=== PATIENT | male | born 1970 | race African-American/Black ===

== ENCOUNTER 2019-03-28 10:18 | Inpatient (IN) ==
[2019-03-28] MEDS ORDERED: hydrALAZINE 20 MG/1 ML VIAL IV PRN (12:13)
[2019-03-28] MEDS ORDERED: LEVOFLOXACIN INJ 750 MG in PREMIX 1 EACH IV SCH (12:30)
[2019-03-28 12:36] LABS: Basophils % 0.8 % (0.0-0.8); Eosinophils # 0.1 10*3/uL (0.0-0.87); Eosinophils % 1.9 % (0.00-10.9); Hematocrit 47.7 VOL% (42.0-52.0); Immature Granulocytes % 0.3 %; Immature Granulocytes Absolute 0.01 #; Lymphocytes % 25.9 % (21.2-54.2); Mean Corpuscular HGB Conc 33.5 GM/DL (32-36); Mean Corpuscular Volume 85.6 FL (87-102); Mean Platelet Volume 9.9 FL (9.6-12.0); Monocytes % 13.7 % (1.7-12.7); Neutrophils % 57.4 % (38.7-73.9); Platelet Count 302 T/CUMM (130-400); Red Blood Count 5.57 MC/CUMM (3.8-5.5); Red Cell Distribution Width 13.9 % (9.3-17.3); White Blood Count 3.7 T/CUMM (4-12)
[2019-03-28 13:00] LABS: Albumin 3.8 G/DL (3.4-5.0); Bilirubin,Total 0.7 MG/DL (0.2-1.0); Calcium 9.3 MG/DL (8.5-10.1); Osmolality,Calculated 276.5 MOS/KG (273-304); Total Protein 7.8 G/DL (6.4-8.3)
[2019-03-28] MEDS: ALBUTEROL/IPRATROPIUM 3 ML NEB RESP TX SCH ×2 (14:46→21:37)
[2019-03-28 14:50] LABS: Apearance,Urine CLEAR (Clear); Bilirubin,Urine Negative (Negative); Blood, Urine Negative (Negative); Glucose,Urine (UA) Negative (Negative); Ketones,Urine Negative (Negative); Mucus,Urine Occasional /LPF (Occasional); Nitrite,Urine Negative (Negative); Protein,Urine Negative; RBC,Urine 1 /HPF (0-4); Urine Color Yellow (Yellow); Urine Specific Gravity 1.011 (1.001-1.035); Urine Urobilinogen < 2.0 EU/DL (0.2-1.0); WBC,Urine <1 /HPF (0-6)
[2019-03-28 15:14] LABS: Barbiturates Screen,Urine Negative (Negative); Benzodiazepines Screen,Urine Negative (Negative); Cannabinoid Screen,Urine Positive (Negative); Opiate Screen,Urine Negative (Negative); Phencyclidine Screen,Urine Negative (Negative)
[2019-03-28] MEDS ORDERED: ACETAMINOPHEN 325 MG TABLET PO PRN (18:19)
[2019-03-28] MEDS: LOSARTAN 25 MG TABLET PO SCH (21:54)
[2019-03-28] MEDS: carvediloL 6.25 MG TABLET PO SCH (21:54)
[2019-03-29] MEDS: ALBUTEROL/IPRATROPIUM 3 ML NEB RESP TX SCH ×4 (00:30→19:55)
[2019-03-29 05:08] LABS: Basophils % 0.8 % (0.0-0.8); Eosinophils # 0.1 10*3/uL (0.0-0.87); Eosinophils % 2.4 % (0.00-10.9); Hematocrit 45.5 VOL% (42.0-52.0); Hemoglobin 15.2 GM/DL (14.0-18.0); Immature Granulocytes % 0.3 %; Immature Granulocytes Absolute 0.01 #; Lymphocytes % 27.5 % (21.2-54.2); Mean Corpuscular HGB Conc 33.4 GM/DL (32-36); Mean Corpuscular Volume 85.8 FL (87-102); Mean Platelet Volume 9.8 FL (9.6-12.0); Monocytes % 16.1 % (1.7-12.7); Neutrophils % 52.9 % (38.7-73.9); Platelet Count 277 T/CUMM (130-400); Red Cell Distribution Width 13.7 % (9.3-17.3); White Blood Count 3.8 T/CUMM (4-12)
[2019-03-29 05:42] LABS: Albumin 3.4 G/DL (3.4-5.0); Bilirubin,Total 1.1 MG/DL (0.2-1.0); Calcium 8.8 MG/DL (8.5-10.1); Osmolality,Calculated 283.1 MOS/KG (273-304); Total Protein 7.4 G/DL (6.4-8.3)
[2019-03-29 05:48] LABS: Anisocytosis 1+; Eosinophils 1 % (0-10); Lymphocytes 26 % (20-55); Platelet Estimate Normal; Segmented Neutrophils 62 % (50-85); Total Cells Counted 100
[2019-03-29 05:49] LABS: Macrocytosis 1+
[2019-03-29] MEDS: hydroCHLOROthiazide 12.5 MG CAPSULE PO SCH (09:35)
[2019-03-29] MEDS: carvediloL 6.25 MG TABLET PO SCH ×2 (09:35→21:06)
[2019-03-29] MEDS: LOSARTAN 25 MG TABLET PO SCH ×2 (09:35→21:06)
[2019-03-29] MEDS: cefTRIAXone 1,000 MG in SYRINGE 1 EACH IV SCH (09:35)
[2019-03-29] MEDS: AZITHROMYCIN INJ 500 MG in SODIUM CHLORIDE 0.9% 250 ML IV SCH (09:39)
[2019-03-29] MEDS ORDERED: ALBUTEROL/IPRATROPIUM 3 ML NEB RESP TX ONE ×2 (16:25→16:37)
[2019-03-30] MEDS: ALBUTEROL/IPRATROPIUM 3 ML NEB RESP TX SCH ×2 (00:20→07:24)
[2019-03-30 05:58] LABS: Basophils % 0.6 % (0.0-0.8); Eosinophils # 0.1 10*3/uL (0.0-0.87); Eosinophils % 3.5 % (0.00-10.9); Hemoglobin 15.5 GM/DL (14.0-18.0); Immature Granulocytes % 0.3 %; Immature Granulocytes Absolute 0.01 #; Lymphocytes # 0.9 10*3/uL (1.4-4.0); Mean Corpuscular Volume 85.9 FL (87-102); Mean Platelet Volume 10.2 FL (9.6-12.0); Monocytes % 15.3 % (1.7-12.7); Neutrophils % 54.3 % (38.7-73.9); Platelet Count 277 T/CUMM (130-400); Red Blood Count 5.47 MC/CUMM (3.8-5.5); Red Cell Distribution Width 13.6 % (9.3-17.3); White Blood Count 3.5 T/CUMM (4-12)
[2019-03-30 06:22] LABS: Albumin 3.5 G/DL (3.4-5.0); Bilirubin,Total 1.3 MG/DL (0.2-1.0); Calcium 9.1 MG/DL (8.5-10.1); Osmolality,Calculated 274.7 MOS/KG (273-304); Total Protein 7.4 G/DL (6.4-8.3)
[2019-03-30 08:32] VITALS: BP 126/91
[2019-03-30] MEDS ORDERED: LOSARTAN 50 MG TABLET PO SCH (09:00)
[2019-03-30] MEDS: AZITHROMYCIN INJ 500 MG in SODIUM CHLORIDE 0.9% 250 ML IV SCH (09:20)
[2019-03-30] MEDS: cefTRIAXone 1,000 MG in SYRINGE 1 EACH IV SCH (09:21)
[2019-03-30] MEDS: carvediloL 6.25 MG TABLET PO SCH (09:23)
[2019-03-30] MEDS: hydroCHLOROthiazide 12.5 MG CAPSULE PO SCH (09:23)
== END 2019-03-30 11:28 | disposition home or self-care (01) | DRG 291 ==
LOC: EDBD 11:13 → SUATTDRO 11:13 → N.TELEN 11:13
PROVIDERS: ADMIT Internal Medicine; ATTEND Internal Medicine